=== PATIENT | female | born 1950 | race Caucasian/White ===

== ENCOUNTER 2021-05-22 11:42 | Outpatient (CLI) | payer MEDICARE, BC, SELFPAY ==
--- NOTE | 2021-05-22 11:54 | CT_ITS ---
WS: [id number] CT ABDOMEN CONTRAST TECHNIQUE: Contrast enhanced CT of the abdomen with coronal and sagittal reformatted images. CLINICAL INFORMATION: EPIGASTRIC PAIN/ABNORMAL WEIGHT LOSS/ANOREXIA COMPARISON: CT 2011 DLP: 220.[address] scans at [place] use at least one of these dose optimization techniques: automated e xposure control; mA and/or kV adjustment per patient size (includes targeted exams where dose is matc hed to clinical indication); or iterative reconstruction. FINDINGS: Diffuse fatty infiltration liver. Normal portal vein and splenic vein. Tiny gallstones in the gallbla dder. Cystic structure in the gallbladder fossa may represent choledochal cyst unchanged since 2010. This measures approximately 1.8 x 1.3 CM. This could be further evaluated with ultrasound or MRCP. No rmal caliber common bile duct and pancreatic head. Lung bases are well aerated. Adrenal glands are normal. Normal renal parenchymal enhancement. No hydr onephrosis. Normal spleen. Normal GE junction. No hydronephrosis in either kidney. Moderate aortic calcification. Normal caliber abdominal aorta. Normal visualized lumbar spine. CT/CT abdomen w con* [id number] IMPRESSION: 1. Cholelithiasis. No significant gallbladder wall thickening or pericholecyst ic fluid. 2. Possible biliary cyst in the gallbladder fossa unchanged since 2010. This c an be further evaluated with ultrasound or MRCP. Normal caliber common bile ivett t at the pancreatic head. 3. Diffuse fatty infiltration of the liver. 4. Moderate aortic calcification. Normal caliber abdominal aorta. 5. No other significant findings.
[2021-05-22 13:01] LABS: Blood Urea Nitrogen 21 mg/dL (8-23)
[2021-05-22] MEDS: iodixanol 320 mg/mL 100mL Btl IV (13:46)
[2021-05-22] MEDS: iohexol 300 mg/mL 50 mL Btl IV (13:46)
== END 2021-05-22 11:43 | disposition home or self-care (01) ==
LOC: RADWPI 11:45
PROVIDERS: PCP Nurse Practitioner Family; Visit Provider Nurse Practitioner Family
DX: R10.13 Epigastric pain (principal); R63.4 Abnormal weight loss; R63.0 Anorexia; K80.20 Calculus of gallbladder without cholecystitis without obstruction; K76.0 Fatty (change of) liver, not elsewhere classified; I70.0 Atherosclerosis of aorta
CPT/HCPCS: 36415; 74160; 82565; 84520; Q9967

== ENCOUNTER 2021-07-11 06:29 | Outpatient (CLI) | payer MEDICARE, BC, SELFPAY ==
--- NOTE | 2021-07-11 06:39 | US_ITS ---
WS: [id number] RIGHT UPPER QUADRANT ULTRASOUND HISTORY: CALCULUS OF GALLBLADDER WITHOUT CHOLECYSTITIS WITHOUT OBS COMPARISON: CT 05/22/2021 Liver: 12.4 cm in length. Normal size liver. No bile duct dilatation or mass. Portal Vein: Normal hepatopetal flow with monophasic waveform. Gallbladder: Normally distended gallbladder. Gallbladder appears lobulated and there is a prominent n malu connecting to larger gallbladder components. Neck and additional gallbladder lobulation correspon ds to the abnormality seen on the recent CT. This lobulated fluid collection in the gallbladder fossa is probably combination of an elongated lobulated gallbladder. There are stones in the gallbladder w ith no acute cholecystitis. There is also a stone or polyp measuring 4 mm at the neck of the gallblad ryan. CBD: 0.3 cm Pancreas: Normal size and echogenicity. Right kidney: 8.9 cm in length. Normal size and echogenicity. No hydronephrosis or mass. Aorta and IVC: Unremarkable abdominal aorta and IVC. No ascites. US/US gall bladder [id number] IMPRESSION: 1. Cholelithiasis. 2. Elongated gallbladder with a prominent neck. Gallbladder elongation corresp onds to the recent CT findings. There is also a polyp or nonshadowing stone at the gallbladder neck. 3. No bile duct dilatation.
== END 2021-07-11 06:30 | disposition home or self-care (01) ==
LOC: RAD 06:30
PROVIDERS: PCP Nurse Practitioner Family; Visit Provider Nurse Practitioner Family
DX: K80.20 Calculus of gallbladder without cholecystitis without obstruction (principal)
CPT/HCPCS: 76705

== ENCOUNTER 2021-07-25 09:42 | Outpatient (CLI) | payer MEDICARE, BC, SELFPAY ==
--- NOTE | 2021-07-25 10:15 | MR_ITS ---
WS: [id number] MRCP (MAGNETIC RESONANCE CHOLANGIOPANCREATOGRAPHY) HISTORY: K76.89 - Other specified diseases of liver COMPARISON: Gallbladder ultrasound 07/11/2021 TECHNIQUE: Multiple sequences are performed to evaluate the intra and extrahepatic ducts. Additional imaging obtained on 07/26/2021. Gallbladder is mildly contracted. No stones or sludge identified by CT. Again noted is a 15 x 11 mm c ystic area just superior to the gallbladder at the gallbladder fossa. This does not definitely connec t to the gallbladder. Also no identifiable connection to the common bile duct although I do not belie ve that should be excluded. This is inseparable from the common bile duct on the CT. On the repeat im aging there is no identifiable connection to the common bile duct. There may be a small tract of the main gallbladder. No connection to the duodenum. A normal size common bile duct. MR/MR MRCP [id number] IMPRESSION: 1. Normal common bile duct. No obstruction. 2. Again noted is a cystic nodule adjacent to the gallbladder and just lateral to the common bile duct as seen on the recent CT. No definite connection to th e common bile duct to suggest a choledochocele. There may be a small tract exte nding to the gallbladder. This may be a multiseptate gallbladder. I do suspect this is part of the gallbladder as on a prior ultrasound there was a gallstone within this separate lumen. 3. Cholelithiasis better seen on a prior CT.
== END 2021-07-25 09:43 | disposition home or self-care (01) ==
LOC: RAD 09:44
PROVIDERS: PCP Nurse Practitioner Family; Visit Provider Surgery
DX: K76.89 Other specified diseases of liver (principal); K80.20 Calculus of gallbladder without cholecystitis without obstruction
CPT/HCPCS: 74181

== ENCOUNTER 2022-01-04 12:18 | Outpatient (CLI) | payer MEDICARE, BC, SELFPAY ==
--- NOTE | 2022-01-04 12:30 | XR_ITS ---
WS: [id number] Exam: XR shoulder LT min 2V* [id number] Date/Time of Exam: 01/04/2022 12:46 PM Reason For Exam: PAIN IN LEFT SHOULDER No fracture or dislocation. The joint compartments are well-maintained. Soft tissue calcification wei ng the acromion that may represent calcific bursitis. XR/XR shoulder LT min 2V* [id number] IMPRESSION: 1. No fracture or dislocation. 2. Soft tissue calcification noted that might reflect calcific bursitis.
== END 2022-01-04 12:19 | disposition home or self-care (01) ==
LOC: RAD 12:21
PROVIDERS: PCP Nurse Practitioner Family; Visit Provider Nurse Practitioner Family
DX: M25.512 Pain in left shoulder (principal); W19.XXXA Unspecified fall, initial encounter
CPT/HCPCS: 73030

== ENCOUNTER 2022-08-15 14:46 | Emergency (ER) | payer MEDICARE, SELFPAY ==
[2022-08-15 15:07] VITALS: BP 116/69; PULSE 62; RESP 16; TEMP 36.8; O2SAT 97
--- NOTE | 2022-08-15 17:15 | XRR_ITS ---
PROCEDURE INFORMATION: Exam: XR Right Ribs with PA Chest Exam date and time: 08/15/2022 5:31 PM Age: 72 years old Clinical indication: Injury or trauma; Rib area; Blunt trauma (contusions or hematomas); Prior surgery; Surgery date: 6+ months; Surgery type: Open heart; Patient HX: Fall 08/12/22 with RT rib pain; ; Additional info: Fall with rib pain TECHNIQUE: Imaging protocol: Radiologic exam of the right ribs with PA chest. Views: 3 views COMPARISON: MR MRCP [id number] 07/25/2021 10:10 AM FINDINGS: Lungs: Unremarkable. No consolidation. Pleural spaces: Unremarkable. No pleural effusion. No pneumothorax. Heart/Mediastinum: Unremarkable. No cardiomegaly. Bones/joints: Multiple displaced of acute rib fractures right 5th 6th and 7th rib these are seen on the oblique view only. There is metallic sternotomy wires are present XR/XR ribs RT mn 3V w CXR1V [id number] IMPRESSION: 1. Displaced fractures right 5th 6th and 7th rib 2. Metallic sternotomy wires are present 3. Otherwise No acute findings.
--- NOTE | 2022-08-15 19:17 | ED_ITS ---
HPI - Fall General: Chief Complaint: Fall Stated Complaint: fall, rib pain Time Seen by Provider: 08/15/22 19:02 History of Present Illness: 72-year-old lady on aspirin presenting to the emergency department due to fall with continued pain. She reports tripping outside and landing forward on concrete on her right side striking her head with positive loss of consciousness 2 days ago. She is unsure of how long she was on the ground however did not seek medical treatment when she got up. Since that time has had continued headache, increased somnolence, right-sided rib pain and back pain. Intensity symptoms is moderate. Severe with exertion and palpation. No other specific changes in health, exacerbating, or alleviating factors identified. Onset (ago): day(s) Fall from: standing Fall witnessed: no Loss of consciousness: Yes Prolonged down time: unclear Symptoms prior to fall: none Context: tripped/slipped Location of injury: head, face, chest and abdomen Severity: moderate Quality: aching and throbbing Review of Systems General: Reports: 10 or more systems reviewed and unremarkable except in HPI and below PFSH ED PFSH: Medical History Epigastric pain Social History Smoking and tobacco status: never smoked Physical Exam Const: COMMON NORMALS: alert GENERAL APPEARANCE: cooperative and well developed HENMT: COMMON NORMALS: normocephalic HEAD & SCALP: normocephalic OTHER: Right lateral periorbital and right mandibular ecchymosis and tenderness palpation. No lambert signs or raccoon eyes. No hemotympanum. No otorrhea or rhinorrhea. Jaw alignment normal. Dentition baseline. No obvious bony step- offs. No septal hematoma. No evidence of ocular entrapment. Eye: COMMON NORMALS: conjunctivae normal CONJUNCTIVA: Yes conjunctivae normal SCLERA: sclerae normal Neck/C-Spine: COMMON NORMALS: supple GENERAL: Yes trachea midline Resp: COMMON NORMALS: clear to auscultation bilaterally EFFORT & INSPECTION: Yes able to speak in complete sentences AUSCULTATION: clear to au scultation bilaterally OTHER: Right lateral and posterior tenderness palpation Cardio: COMMON NORMALS: regular rate and regular rhythm RATE: regular rate RHYTHM: regular rhythm GI: COMMON NORMALS: Soft to palpation PALPATION: Yes Soft to palpation and No Tenderness to palpation present (GI) PERCUSSION: normal to percussion Extremity: NARRATIVE EXTREMITY EXAM: Left mid tibia-fibula tenderness to palpation without obvious deformity. GENERAL: Yes normal exam except as noted and No edema Neuro: COMMON NORMALS: moves all extremities SENSORIUM/ORIENTATION: Yes alert and No Orientation impaired Psych: COMMON NORMALS: mental status grossly normal and Normal thought process present THOUGHT PROCESS: Normal thought process present Course Vital Signs: Vital signs: Vital Signs Temperature 98.2 F 08/15/22 15:07 Pulse Rate 62 08/15/22 15:07 Respiratory Rate 16 08/15/22 22:32 Blood Pressure 116/69 08/15/22 15:07 Pulse Oximetry 94 08/15/22 22:32 Oxygen Delivery Me thod Room Air 08/15/22 22:32 MDM - Fall Medical Decision Making 72-year-old lady presenting due to continued pain after a fall for which she was not previously evaluated. Exam as above. Continue exam performed. Labs with no leukocytosis, normocytic anemia, normal platelet count. Metabolic panel without derangement to explain symptoms. COVID is negative. CT head and cervical spine as well as face without acute bony injury or internal injury. Soft tissue findings consistent with exam. CT chest abdomen pelvis with initially read as negative for any injury. Incidental findings discussed with patient. Given ED wait times the patient had received a x-ray prior to my evaluation which was positive for fractures. I discussed the case with the radiologist and he identifies possible fractures though these are not consistent with the identified x-ray fractures and are not visible on the coronal views. Patient does have tenderness in this region. X- rays otherwise negative. Patient treated with analgesia and feels improved. Complex situation as imaging is somewhat indeterminant and there is a significant difference in management between 3 continuous or fractures and less. I discussed this with the patient. I offered to attempt transfer for inpatient trauma management which she declined, given uncertainty this is probably reasonable. Plan to discharge patient with incentive spirometer, strict return cautions given. The results of ED evaluation were discussed with the patient including prescriptions and/or symptomatic cares (if applicable) including appropriate and responsible use, followup plan, and return precautions. The patient verbalized understanding and felt safe for discharge. Medical Records I reviewed the patient's medical records. Lab Data I reviewed the patient's lab results. 08/15/22 20:00 08/15/22 20:00 Radiology Impressions Ribs X-Ray 08/15/22 17:15 IMPRESSION: 1. Displaced fractures right 5th 6th and 7th rib 2. Metallic sternotomy wires are present 3. Otherwise No acute findings. Cervical Spine CT 08/15/22 19:31 IMPRESSION: 1. No fracture or acute finding. 2. Multilevel degenerative changes. Chest/Abdomen/Pelvis CT 08/15/22 19:31 IMPRESSION: 1. Negative for traumatic injury to the chest. 2. Ascending thoracic aorta dilated 3.4 cm. 3. Sternotomy wires. 4. Coronary artery atherosclerotic calcifications. 5. Emphysematous changes suspected. IMPRESSION: 1. Negative for traumatic injury to the abdomen or pelvis. 2. Hepatic steatosis. 3. Constipation. ADDENDUM: 08/15/222148 Findings reviewed on the phone with Dr. Tabares . Right 3rd anterolateral rib series 15, image 43 sagittal images, right 4th anterolateral rib series 15, image 45 sagittal images and possibly right 5th anterolateral rib series 15, image 47 sagittal images demonstrate fractures which on axial images are not well visualized and appear somewhat sclerotic, please correlate clinically for acute versus chronic rib fractures. Face CT 08/15/22 19:31 IMPRESSION: 1. No fracture identified. 2. Soft tissue contusion and small hematoma in the right cheek. Head CT 08/15/22 19:31 IMPRESSION: 1. No acute intracranial abnormality. Humerus X-Ray 08/15/22 19:31 IMPRESSION: No acute findings. Tibia/Fibula X-Ray 08/15/22 19:31 IMPRESSION: No acute findings. Laboratory Results WBC 7.7 10^3/uL (4.0-10.0) 08/15/22 20:00 RBC 3.94 10^6/uL (4.1-5.3) L 08/15/22 20:00 Hgb 10.3 g/dL (11.5-15.3) L 08/15/22 20:00 Hct 33.3 % (37.0-47.0) L 08/15/22 20:00 MCV 84.5 fl (81-99) 08/15/22 20:00 MCH 26.1 pg (28.0-34.0) L 08/15/22 20:00 MCHC 30.9 g/dL (30.0-36.0) 08/15/22 20:00 RDW 15.9 % (12.1-15.1) H 08/15/22 20:00 Plt Count 305 10^3/cmm (130-400) 08/15/22 20:00 MPV 9.7 fL (7.4-10.4) 08/15/22 20:00 Neut % (Auto) 52.3 % 08/15/22 20:00 Lymph % (Auto) 30.1 % 08/15/22 20:00 [place] % (Auto) 10.5 % 08/15/22 20:00 Eos % (Auto) 6.0 % 08/15/22 20:00 Baso % (Auto) 0.7 % 08/15/22 20:00 Neut # (Auto) 4.02 10^3/uL (1.8-7.7) 08/15/22 20:00 Lymph # (Auto) 2.3 10^3/uL (0.8-4.8) 08/15/22 20:00 [place] # (Auto) 0.8 10^3/uL (0.2-0.9) 08/15/22 20:00 Eos # (Auto) 0.5 10^3/uL (0.0-0.8) 08/15/22 20:00 Baso # (Auto) 0.1 10^3/uL (0.0-0.1) 08/15/22 20:00 Nucleated RBC % (auto) 0 % 08/15/22 20:00 Nucleated RBCs # 0.0 /100WBC 08/15/22 20:00 Sodium 141 mmol/L (136-145) 08/15/22 20:00 Potassium 4.7 mmol/L (3.5-5.1) 08/15/22 20:00 Chloride 103 mmol/L (98-107) 08/15/22 20:00 Carbon Dioxide 28 mmol/L (22-29) 08/15/22 20:00 Anion Gap 14.7 (5-19) 08/15/22 20:00 BUN 18 mg/dL (8-23) 08/15/22 20:00 Creatinine 0.8 mg/dL (0.5-0.9) 08/15/22 20:00 GFR Calculation Not Reportable 08/15/22 20:00 Glucose 124 mg/dL (65-115) H 08/15/22 20:00 Calculated Osmolality 295 mOsm/kg (285-295) 08/15/22 20:00 Calcium 9.4 mg/dL (8.5-10.5) 08/15/22 20:00 Total Bilirubin 0.2 mg/dL (0.15-1.2) 08/15/22 20:00 AST 21 U/L (0-32) 08/15/22 20:00 ALT 13 U/L (0-33) 08/15/22 20:00 Alkaline Phosphatase 100 U/L (35-105) 08/15/22 20:00 Total Protein 7.4 g/dL (6.6-8.7) 08/15/22 20:00 Albumin 4.5 g/dL (3.5-5.2) 08/15/22 20:00 Globulin 2.9 g/dL (1.3-4.6) 08/15/22 20:00 SARS-CoV-2 Ag (Rapid) negative (Negative) 08/15/22 20:37 Discharge Plan Discharge Patient Disposition: Home Clinical Impression: Fall, Closed head injury, Contusion of face, Anemia, Multiple rib fractures Condition: Stable Prescriptions: New ondansetron 4 mg tablet,disintegrating 4 mg PO Q8H PRN (Reason: nausea and vomiting) Qty: 15 0RF oxycodone 5 mg tablet 5 mg PO Q4H PRN (Reason: pain) Qty: 20 0RF No Action amlodipine 5 mg tablet 5 mg PO BID aspirin 81 mg capsule 81 mg PO DAILY rosuvastatin [Crestor] 40 mg tablet 40 mg PO DAILY insulin lispro 100 unit/mL insulin pen 5 unit SUBCUT TID Rx Instructions: uses low dose scale subQ at meals and HS isosorbide mononitrate 30 mg tablet extended release 24 hr 30 mg PO DAILY Lantus U-100 Insulin 100 unit/mL solution 7 unit SUBCUT BID melatonin 5 mg capsule PO metformin 1,000 mg tablet 1,000 mg PO BID metoprolol tartrate 50 mg tablet 50 mg PO BID nitroglycerin 0.4 mg tablet, sublingual 0.4 mg sublingual Q5M PRN Rx Instructions: do not exceed 3 doses per episode pantoprazole [Protonix] 20 mg tablet,delayed release (/EC) 20 mg PO DAILY sertraline [Zoloft] 25 mg tablet 25 mg PO DAILY tizanidine 4 mg capsule 4 mg PO Q8H PRN triamcinolone acetonide 0.1 % cream 1 applic topical DAILY Discharge Orders: Discharge ED (Routine); Ordered 08/15/22 Ordered By: Dwaine Tabares Referrals: Jane Cardoso FNP [Primary Care Provider] - Discharge Diet: Usual diet Discharge Activity: Increase activity as tolerated Patient Instructions: Rib Fracture (ED), Head Injury (ED), Contusion in Adults (ED), Opioid Safety Activity Restrictions/Additional Instructions: Thank you for visiting the emergency department. You were seen and evaluated for fall with head injury and rib pain. The most likely cause of most your pain is related to soft tissue injury. As discussed you possibly have rib fractures. The treatment for this is supportive with the risk being complications specifically risk of pneumonia. I will discharge you with oxycodone, use this cautiously. You may use [id number] medications such as acetaminophen and ibuprofen for pain however please do not exceed the daily recommended dosage as listed on the pac kaging and please keep in mind that many namebrand medications contain the same active ingredients. Please avoid these medications if previously instructed to do so by another physician due to other underlying medical condition. Use the incentive spirometer as discussed. Please follow-up with a primary care provider. Return to the emergency department for worsening pain, shortness of breath, co ugh, fevers, or anything else that you are concerned about and feel needs emergency department evaluation. Coding Level of Care Code ED [employer] for Josefina Arevalo
--- NOTE | 2022-08-15 19:31 | CTR_ITS ---
PROCEDURE INFORMATION: Exam: CT Cervical Spine Without Contrast Exam date and time: 08/15/2022 8:14 PM Age: 72 years old Clinical indication: Injury or trauma; Fall; Blunt trauma; Additional info: Fall, right neck pain TECHNIQUE: Imaging protocol: Computed tomography of the cervical spine without contrast. Radiation optimization: All CT scans at this facility use at least one of these dose optimization techniques: automated exposure control; mA and/or kV adjustment per patient size (includes targeted exams where dose is matched to clinical indication); or iterative reconstruction. REPORTING DATA: Count of CT and Cardiac NM exams in prior 12 months: This patient has received 3 known CTs and 0 known cardiac nuclear medicine studies in the 12 months prior to the current study. COMPARISON: CT facial bones wo con* [id number] 08/15/2022 8:12 PM RADIATION DOSE METRICS: Total DLP (mGy-cm): 127.27 FINDINGS: Bones/joints: The vertebral body stature is maintained. No fracture. Trace anterior degenerative subluxation of C3 on C4. Trace retrograde degenerative subluxations of C4 on C5 and C5 on C6. Severe disc space narrowing with degenerative endplate changes and spurring at C4-C5 and C5-C6. The facets are intact with mild degenerative changes. Circumferential disc bulge at C3-C4 with moderate central canal stenosis. Bilateral bony foraminal stenosis at C4-C5 and C5-C6. Small disc bulges with mild central canal stenosis at C4-C5 and C5-C6. Posterior disc bulge with moderate central canal stenosis at C6-C7. Lungs: Lung apices are normal. Lymph nodes: Prominent cervical lymph nodes are most likely reactive. Vasculature: Carotid bulb calcifications. Soft tissues: Unremarkable. CT/CT cervical spin wo con* [id number] IMPRESSION: 1. No fracture or acute finding. 2. Multilevel degenerative changes.
--- NOTE | 2022-08-15 19:31 | XRR_ITS ---
PROCEDURE INFORMATION: Exam: XR Left Tibia and Fibula Exam date and time: 08/15/2022 7:44 PM Age: 72 years old Clinical indication: Injury or trauma; Fall; Blunt trauma; Lower leg; Patient HX: PT fell 08/12/22. C/O pain left tib/fib; Additional info: Fall, mid pain to lateral compression TECHNIQUE: Imaging protocol: Radiologic exam of the left tibia and fibula. Views: 2 views. COMPARISON: No relevant prior studies available. FINDINGS: Bones/joints: Normal. Soft tissues: Normal. XR/XR tibia fibula LT 2V [id number] IMPRESSION: No acute findings.
--- NOTE | 2022-08-15 19:31 | XRR_ITS ---
PROCEDURE INFORMATION: Exam: XR Right Humerus Exam date and time: 08/15/2022 7:41 PM Age: 72 years old Clinical indication: Injury or trauma; Fall; Blunt trauma (contusions or hematomas); Arm, upper; Right; Patient HX: PT fell 08/12/22. C/O paiin RT ribs and RT humerus; Additional info: Fall, pain proximal TECHNIQUE: Imaging protocol: Radiologic exam of the right humerus. Views: 2 or more views. COMPARISON: CR (CHEST, ) 08/15/2022 5:31 PM FINDINGS: Bones/joints: Normal. Soft tissues: Normal. XR/[place] [id number] IMPRESSION: No acute findings.
--- NOTE | 2022-08-15 19:31 | CTR_ITS ---
PROCEDURE INFORMATION: Exam: CT Head Without Contrast Exam date and time: 08/15/2022 8:09 PM Age: 72 years old Clinical indication: Injury or trauma; Fall; Blunt trauma (contusions or hematomas); Additional info: Fall, h/a, somnolence TECHNIQUE: Imaging protocol: Computed tomography of the head without contrast. Radiation optimization: All CT scans at this facility use at least one of these dose optimization techniques: automated exposure control; mA and/or kV adjustment per patient size (includes targeted exams where dose is matched to clinical indication); or iterative reconstruction. REPORTING DATA: Count of CT and Cardiac NM exams in prior 12 months: This patient has received 2 known CTs and 0 known cardiac nuclear medicine studies in the 12 months prior to the current study. COMPARISON: CT head wo con* [id number] 09/08/2018 6:24 PM RADIATION DOSE METRICS: Total DLP (mGy-cm): 1011.98 FINDINGS: Brain: Moderate diffuse cortical volume loss. Mild hypodensities in supratentorial periventricular and subcortical white matter, consistent with microangiopathy. No intracranial hemorrhage. Cerebral ventricles: No ventriculomegaly. Paranasal sinuses: Visualized sinuses are unremarkable. No fluid levels. Mastoid air cells: Visualized mastoid air cells are well aerated. Orbital cavities: Prior cataract surgery. Bones/joints: Unremarkable. No acute fracture. Soft tissues: Unremarkable. Vasculature: No hyperdense artery. CT/CT head wo con* [id number] IMPRESSION: 1. No acute intracranial abnormality.
--- NOTE | 2022-08-15 19:31 | CTR_ITS ---
PROCEDURE INFORMATION: Exam: CT Maxillofacial Without Contrast Exam date and time: 08/15/2022 8:12 PM Age: 72 years old Clinical indication: Injury or trauma; Fall; Blunt trauma (contusions or hematomas); Forehead and orbit/periorbital and jaw; Right; Additional info: Fall, right lateral orbital tenderness, right mandibular TECHNIQUE: Imaging protocol: Computed tomography of the face without contrast. Radiation optimization: All CT scans at this facility use at least one of these dose optimization techniques: automated exposure control; mA and/or kV adjustment per patient size (includes targeted exams where dose is matched to clinical indication); or iterative reconstruction. REPORTING DATA: Count of CT and Cardiac NM exams in prior 12 months: This patient has received 2 known CTs and 0 known cardiac nuclear medicine studies in the 12 months prior to the current study. COMPARISON: CT head wo con* [id number] 08/15/2022 8:09 PM RADIATION DOSE METRICS: Total DLP (mGy-cm): 537.35 FINDINGS: Orbital cavities: Prior cataract surgery. Bones/joints: Degenerative changes of the cervical spine. No fracture. Paranasal sinuses: Normal. No air-fluid levels. Soft tissues: Subcutaneous soft tissue contusion and small hematoma in the right cheek. Dental: Unerupted upper left 3rd molar. Multiple missing upper and lower teeth. CT/CT facial bones wo con* [id number] IMPRESSION: 1. No fracture identified. 2. Soft tissue contusion and small hematoma in the right cheek.
--- NOTE | 2022-08-15 19:31 | CTR_ITS ---
PROCEDURE INFORMATION: Exam: CT Chest With Contrast; Diagnostic Exam date and time: 08/15/2022 8:18 PM Age: 72 years old Clinical indication: Injury or trauma; Fall; Abdominal wall; Blunt trauma (contusions or hematomas); Prior surgery; Surgery type: Open heart. Gb. Appy. Hysterectomy. Patient HX: PT tripped and fell onto concrete. C/O RT rib/chest wall and RT sided abd pain. ; Additional info: Fall, right side and rib pains TECHNIQUE: Imaging protocol: Diagnostic computed tomography of the chest with contrast. Radiation optimization: All CT scans at this facility use at least one of these dose optimization techniques: automated exposure control; mA and/or kV adjustment per patient size (includes targeted exams where dose is matched to clinical indication); or iterative reconstruction. Contrast material: OMNI 350; Contrast volume: 75 ml; Contrast route: INTRAVENOUS (IV); REPORTING DATA: Count of CT and Cardiac NM exams in prior 12 months: This patient has received 3 known CTs and 0 known cardiac nuclear medicine studies in the 12 months prior to the current study. COMPARISON: CR (CHEST, ) 08/15/2022 5:31 PM RADIATION DOSE METRICS: Total DLP (mGy-cm): 537.35 FINDINGS: Lungs: Emphysematous changes suspected. Pleural spaces: Unremarkable. No pneumothorax. No pleural effusion. Heart: Unremarkable. No cardiomegaly. No pericardial effusion. Coronary arteries: Coronary artery atherosclerotic calcifications. Lymph nodes: Unremarkable. No enlarged lymph nodes. Vasculature: Ascending thoracic aorta dilated to to 3.4 cm. Bones/joints: Sternotomy wires. Soft tissues: Unremarkable. COMMENTS: In the absence of a history or active diagnosis of lung cancer, it is recommended that this patient with emphysema be evaluated for enrollment in a low dose CT lung cancer screening program. PROCEDURE INFORMATION: Exam: CT Abdomen And Pelvis With Contrast Exam date and time: 08/15/2022 8:18 PM Age: 72 years old Clinical indication: Injury or trauma; Fall; Abdominal wall; Blunt trauma (contusions or hematomas); Prior surgery; Surgery type: Open heart. Gb. Appy. Hysterectomy. Patient HX: PT tripped and fell onto concrete. C/O RT rib/chest wall and RT sided abd pain. ; Additional info: Fall, right side and rib pains TECHNIQUE: Imaging protocol: Computed tomography of the abdomen and pelvis with contrast. Radiation optimization: All CT scans at this facility use at least one of these dose optimization techniques: automated exposure control; mA and/or kV adjustment per patient size (includes targeted exams where dose is matched to clinical indication); or iterative reconstruction. Contrast material: OMNI 350; Contrast volume: 75 ml; Contrast route: INTRAVENOUS (IV); REPORTING DATA: Count of CT and Cardiac NM exams in prior 12 months: This patient has received 3 known CTs and 0 known cardiac nuclear medicine studies in the 12 months prior to the current study. COMPARISON: MR MRCP [id number] 07/25/2021 10:10 AM RADIATION DOSE METRICS: Total DLP (mGy-cm): 537.35 FINDINGS: Liver: Hepatic steatosis. Gallbladder and bile ducts: Normal. No calcified stones. No ductal dilation. Pancreas: Normal. No ductal dilation. Spleen: Normal. No splenomegaly. Adrenal glands: Normal. No mass. Kidneys and ureters: Normal. No hydronephrosis. Stomach and bowel: Constipation. Appendix: No evidence of appendicitis. Intraperitoneal space: Unremarkable. No free air. No significant fluid collection. Vasculature: Unremarkable. No abdominal aortic aneurysm. Lymph nodes: Unremarkable. No enlarged lymph nodes. Urinary bladder: Unremarkable as visualized. Reproductive: Unremarkable as visualized. Bones/joints: Unremarkable. No acute fracture. Soft tissues: Unremarkable. CT/CT chest abdpel w/*[id number] IMPRESSION: 1. Negative for traumatic injury to the chest. 2. Ascending thoracic aorta dilated 3.4 cm. 3. Sternotomy wires. 4. Coronary artery atherosclerotic calcifications. 5. Emphysematous changes suspected. IMPRESSION: 1. Negative for traumatic injury to the abdomen or pelvis. 2. Hepatic steatosis. 3. Constipation.
[2022-08-15] MEDS: morphine 4 mg/mL SDV 1 mL IVP (20:03)
[2022-08-15] MEDS: iohexol 350 mg/mL 500 mL Btl (per mL) IV (20:23)
[2022-08-15 20:26] LABS: Basophils # 0.1 10^3/uL (0.0-0.1); Basophils % 0.7 %; Eosinophils # 0.5 10^3/uL (0.0-0.8); Hematocrit 33.3 % (37.0-47.0); Hemoglobin 10.3 g/dL (11.5-15.3); Lymphocytes # 2.3 10^3/uL (0.8-4.8); Lymphocytes % 30.1 %; Mean Corpuscular HGB Conc 30.9 g/dL (30.0-36.0); Mean Corpuscular Hemoglobin 26.1 pg (28.0-34.0); Mean Corpuscular Volume 84.5 fl (81-99); Mean Platelet Volume 9.7 fL (7.4-10.4); Monocytes # 0.8 10^3/uL (0.2-0.9); Monocytes % 10.5 %; Neutrophils # 4.02 10^3/uL (1.8-7.7); Neutrophils % 52.3 %; Nucleated Red Blood Cells % 0 %; Platelet Count 305 10^3/cmm (130-400); Red Blood Count 3.94 10^6/uL (4.1-5.3); Red Cell Distribution Width 15.9 % (12.1-15.1); White Blood Count 7.7 10^3/uL (4.0-10.0)
[2022-08-15 20:33] LABS: Alanine Aminotransferase 13 U/L (0-33); Albumin Level 4.5 g/dL (3.5-5.2); Alkaline Phosphatase 100 U/L (35-105); Anion Gap 14.7 (5-19); Aspartate Amino Transferase 21 U/L (0-32); Blood Urea Nitrogen 18 mg/dL (8-23); Calcium 9.4 mg/dL (8.5-10.5); Carbon Dioxide 28 mmol/L (22-29); Chloride 103 mmol/L (98-107); Globulin 2.9 g/dL (1.3-4.6); Glucose 124 mg/dL (65-115); Osmolality Calculated 295 mOsm/kg (285-295); Potassium 4.7 mmol/L (3.5-5.1); Sodium 141 mmol/L (136-145); Total Bilirubin 0.2 mg/dL (0.15-1.2); Total Protein 7.4 g/dL (6.6-8.7)
[2022-08-15 21:15] LABS: SARS Covid-2 Antigen negative (Negative)
[2022-08-15 22:32] VITALS: RESP 16; O2SAT 94
== END 2022-08-15 22:58 | disposition home or self-care (01) ==
PROVIDERS: Emergency Provider Emergency Medicine; PCP Nurse Practitioner Family
DX: S22.41XA Multiple fractures of ribs, right side, initial encounter for closed fracture (principal); S06.9X9A Unspecified intracranial injury with loss of consciousness of unspecified duration, initial encounter; S00.83XA Contusion of other part of head, initial encounter; D64.9 Anemia, unspecified; W01.0XXA Fall on same level from slipping, tripping and stumbling without subsequent striking against object, initial encounter
CPT/HCPCS: 70450; 70486; 71101; 71260; 72125; 73060; 73590; 74177; 80053; 85025; 87426; 96374; 99285; J2270; Q9967

== ENCOUNTER 2022-08-30 09:46 | Outpatient (CLI) | payer MEDICARE, SELFPAY ==
--- NOTE | 2022-08-30 10:01 | XR_ITS ---
WS: [id number] Exam: XR ankle LT min 3V* [id number] Date/Time of Exam: 08/30/2022 10:15 AM Reason For Exam: PAIN IN LEFT ANKLE JOINTS OF LEFT FOOT/FALL Findings: Multiple views of the ankle reveal no fracture or displacements of bone. No soft tissue swelling is present. There are no periosteal reactions noted. The talus and calcaneus are in adequate position. The joint space is smooth and equidistant. XR/XR ankle LT min 3V* [id number] IMPRESSION: Negative left ankle.
== END 2022-08-30 09:47 | disposition home or self-care (01) ==
LOC: RAD 09:50
PROVIDERS: PCP Nurse Practitioner Family; Visit Provider Nurse Practitioner Family
DX: M25.572 Pain in left ankle and joints of left foot (principal); Z91.81 History of falling
CPT/HCPCS: 73610

== ENCOUNTER 2023-01-22 09:07 | Outpatient (CLI) | payer MEDICARE, SELFPAY ==
--- NOTE | 2023-01-22 09:14 | MM_ITS ---
WS: [id number] BILATERAL SCREENING DIGITAL TOMOSYNTHESIS MAMMOGRAM WITH CAD HISTORY: SCREENING COMPARISON: None available. Bilateral CC and MLO views with tomosynthesis and synthetic mammography submitted. Computer aided det ection analyzed. Breast composition: There are scattered areas of fibroglandular density. No suspicious masses, microc alcifications or architectural distortion. Benign arterial and round calcifications. IMPRESSION: MM/[place] [id number] BI-RADS: 2-Benign FOLLOW UP: 1 Year Follow-up
== END 2023-01-22 09:08 | disposition home or self-care (01) ==
PROVIDERS: PCP Nurse Practitioner Family; Visit Provider Nurse Practitioner Family
DX: Z12.31 Encounter for screening mammogram for malignant neoplasm of breast (principal)
CPT/HCPCS: 77063; 77067

== ENCOUNTER 2023-07-16 12:07 | Outpatient (CLI) | payer MEDICARE, SELFPAY ==
--- NOTE | 2023-07-16 12:12 | XRR_ITS ---
PROCEDURE INFORMATION: Exam: XR Chest Exam date and time: 07/16/2023 12:25 PM Age: 72 years old Clinical indication: Pain; Other: Other; Prior surgery; Surgery date: 6+ months; Surgery type: Open heart; Patient HX: Checking for fluid in the lungs; Additional info: Other chest pain TECHNIQUE: Imaging protocol: Radiologic exam of the chest. Views: 2 views. COMPARISON: CT chest abdpel w/*[id number] 08/15/2022 8:18 PM FINDINGS: Tubes, catheters and devices: Electronic devices projecting over the anterior upper abdomen are likely external to the patient. Lungs: Unremarkable. No consolidation. Pleural spaces: Unremarkable. No pleural effusion. No pneumothorax. Heart/Mediastinum: No cardiomegaly. Mediastinal surgical clips. Vasculature: Aortic atherosclerotic calcification. Bones/joints: Prior median sternotomy. XR/XR chest 2V* [id number] IMPRESSION: No acute findings.
== END 2023-07-16 12:08 | disposition home or self-care (01) ==
LOC: RAD 12:08
PROVIDERS: PCP Nurse Practitioner Family; Visit Provider Nurse Practitioner Family
DX: R07.89 Other chest pain (principal); Z98.890 Other specified postprocedural states; Z86.79 Personal history of other diseases of the circulatory system
CPT/HCPCS: 71046

== ENCOUNTER 2024-07-19 14:01 | Emergency (ER) | payer MEDICARE, SELFPAY ==
[2024-07-19 14:03] VITALS: BP 167/89; PULSE 77; TEMP 36.7; O2SAT 97; BMI 20.5
--- NOTE | 2024-07-19 14:25 | XRR_ITS ---
PROCEDURE INFORMATION: Exam: XR Left Elbow Exam date and time: 07/19/2024 2:53 PM Age: 74 years old Clinical indication: Pain; Elbow; Left; Additional info: Injury? Pain; Get mid humerus TECHNIQUE: Imaging protocol: Radiologic exam of the left elbow. Views: 3 or more views. COMPARISON: CR XR shoulder LT min 2V* [id number] 01/04/2022 12:36 PM FINDINGS: Bones/joints: No evidence of fracture or subluxation. No evidence of joint effusion. Radiocapitellar alignment is maintained. Soft tissues: Grossly unremarkable. XR/XR elbow LT min 3V* [id number] IMPRESSION: 1. No evidence of fracture or subluxation.
--- NOTE | 2024-07-19 14:25 | XRR_ITS ---
PROCEDURE INFORMATION: Exam: XR Left Shoulder Exam date and time: 07/19/2024 2:53 PM Age: 74 years old Clinical indication: Pain; Shoulder; Left; Additional info: Injury? Pain; Get mid humerus TECHNIQUE: Imaging protocol: Radiologic exam of the left shoulder. Views: 2 or more views. COMPARISON: CR XR shoulder LT min 2V* [id number] 01/04/2022 12:36 PM FINDINGS: Bones/joints: The glenohumeral articulation is grossly intact. The acromioclavicular articulation is grossly intact. Bony demineralization compatible with osteopenia or osteoporosis. Soft tissues: No gross soft tissue abnormality. 3 mm calcification in the region of the distal infraspinatus tendon, possibly reflecting calcium hydroxyapatite deposition. XR/XR shoulder LT min 2V* [id number] IMPRESSION: 1. No evidence of fracture or subluxation. If there is concern for labral, muscle or tendon pathology, follow-up outpatient MRI may be helpful.
--- NOTE | 2024-07-19 14:29 | W.ED.EXTPRO ---
HPI - Extremity Problem General: Chief complaint: Extremity Injury, Upper Stated complaint: pain/ arm , shoulder / fell last week Time Seen by Provider: 07/19/24 14:12 Source: patient and family Mode of arrival: ambulatory Limitations: no limitations History of Present Illness: Patient is a 74-year-old female presents to ED today with complaint of left arm pain. Patient states she fell about a week ago after the wind caught a door knocked her down. She did fall onto her left side but she did not have any pain following the fall. Patient states she has been asymptomatic over the past several days until today when she began noticing pain to the left shoulder and elbow region. She is not sure if she slept on it wrong or rolled over on it wrong. She has not noticed any swelling or color/temperature changes to the arm. She is not having any numbness, tingling, loss of sensation. Pain is worse with range of motion of the elbow or shoulder. She is not having any neck pain. MD Complaint: extremity pain Onset (ago): hour(s) Pain Consistency: constant Location: left and upper extremity Radiation: none Relieving factors: immobilization Exacerbating factors: range of motion and palpation Associated symptoms: Reports no associated symptoms; Deny chest pain Related Data Home Medications ?Medication ?Instructions ?Recorded ?Confirmed amlodipine 5 mg tablet 5 mg PO BID 08/01/21 07/19/24 aspirin 81 mg capsule 81 mg PO DAILY 08/01/21 07/19/24 insulin lispro 100 unit/mL 5 unit SUBCUT TID 08/01/21 07/19/24 subcutaneous pen (Humalog KwikPen (U-100) Insulin) isosorbide mononitrate 30 mg 30 mg PO DAILY 08/01/21 07/19/24 tablet,extended release 24 hr metoprolol tartrate 50 mg tablet 50 mg PO BID 08/01/21 07/19/24 nitroglycerin 0.4 mg sublingual 0.4 mg sublingual Q5M PRN Chest 08/01/21 07/19/24 tablet Pain rosuvastatin 40 mg tablet (Crestor) 40 mg PO DAILY 08/01/21 07/19/24 diltiazem HCl 180 mg 180 mg PO DAILY 07/19/24 07/19/24 capsule,extended release 24 hr evolocumab 140 mg/mL subcutaneous 140 mg SUBCUT Q14D 07/19/24 07/19/24 pen injector (Bi Antunezick) ezetimibe 10 mg tablet 10 mg PO DAILY 07/19/24 07/19/24 insulin pump cart,auto,BT,G6/7 07/19/24 07/19/24 (Omnipod 5 G6-G7 Pods (Gen 5) subcutaneous cartridge) Previous Rx's ?Medication ?Instructions ?Recorded methylprednisolone 4 mg tablets in See Rx Instructions PO .COMPLEX 07/19/24 a dose pack (Medrol (Yves)) #21 ea Allergies Allergy/AdvReac Type Severity Reaction Status Date / Time meperidine (From Demerol) Allergy ADR-Vomitin Verified 07/19/24 14:13 g Review of Systems Eyes: Denies: change in vision Card: Denies: chest pain or palpitations Resp: Denies: dyspnea Musc: Reports: extremity pain, joint pain and limited range of motion; Denies: neck pain, back pain, extremity swelling, joint swelling, joint redness, joint warmth, joint stiffness, muscle cramps or muscle weakness Neuro: Denies: numbness in extremities or sensory changes PFSH ED PFSH: Medical History Epigastric pain Social History Smoking and tobacco/nicotine status: never used tobacco/nicotine Physical Exam Const: COMMON NORMALS: no acute distress, average body habitus, patient oriented x3, no limitations, healthy appearing, alert and well nourished Neck/C-Spine: COMMON NORMALS: full ROM GENERAL: Yes normal visual inspection CERVICAL SPINE: Yes cervical ROM normal, No pain with cervical ROM and No Cervical spine tenderness Resp: COMMON NORMALS: normal respiratory effort and clear to auscultation bilaterally AUSCULTATION: clear to auscultation bilaterally Cardio: COMMON NORMALS: regular rate and regular rhythm RATE: regular rate RHYTHM: regular rhythm GI: COMMON NORMALS: non-tender Back/Pelvis: COMMON NORMALS: thoracic and lumbar spine normal to inspection Extremity: COMMON NORMALS: capillary refill normal, no joint enlargement and no clubbing, cyanosis or edema GENERAL: Yes normal exam except as noted LEFT UPPER EXTREMITY: Yes shoulder joint, Yes upper arm and Yes elbow joint OTHER: L UE neurovascularly intact; no edema present; no palpable cords; no erythema or evidence for infection; she has pain to L shoulder, upper arm, and L elbow with palpation and mainly with ROM; no muscle/bicep deformity Neuro: COMMON NORMALS: patient oriented x3, moves all extremities, no focal motor deficits and no sensory deficits noted SENSORIUM/ORIENTATION: Yes alert Course Vital Signs: Vital signs: Vital Signs Temperature 98.0 F 07/19/24 14:03 Pulse Rate 64 07/19/24 14:46 Blood Pressure 143/76 07/19/24 14:46 Pulse Oximetry 97 07/19/24 14:46 Oxygen Delivery Me thod Room Air 07/19/24 14:03 MDM - Extremity (Nontraumatic) Medical Decision Making Patient is a very nice 74-year-old female here for left arm pain. She states she did fall about a week ago but did not have any pain following the fall. Her pain started today. She has not had any swelling. No evidence for infection. Limb is neurovascualrly intact. No numbness, tingling, loss of sensation. XRs showing no acute bony injuries. Calcific tendonitis to shoulder. Will have her treat with otc analgesics, heat/ice, and follow-up with primary care in 1 to 2 weeks if symptoms or not improving. Return to ED precautions discussed. Medical Records I reviewed the patient's medical records. Lab Data Radiology Impressions Elbow X-Ray 07/19/24 14:25 IMPRESSION: 1. No evidence of fracture or subluxation. XR interpretation done by ED provider, pending radiology final review Discharge Plan Discharge Patient Disposition: Home Clinical Impression: Arm pain, left Condition: Stable Prescriptions: New methylprednisolone [Medrol (Yves)] 4 mg tablets,dose pack See Rx Instructions .ROUTE .COMPLEX Qty: 21 0RF Rx Instructions: orally per package directions No Action amlodipine 5 mg tablet 5 mg PO BID aspirin 81 mg capsule 81 mg PO DAILY rosuvastatin [Crestor] 40 mg tablet 40 mg PO DAILY insulin lispro [Humalog KwikPen Insulin] 100 unit/mL insulin pen 5 unit SUBCUT TID Rx Instructions: uses low dose scale subQ at meals and HS isosorbide mononitrate 30 mg tablet extended release 24 hr 30 mg PO DAILY metoprolol tartrate 50 mg tablet 50 mg PO BID nitroglycerin 0.4 mg tablet, sublingual 0.4 mg sublingual Q5M PRN (Reason: Chest Pain) Rx Instructions: do not exceed 3 doses per episode diltiazem HCl 180 mg capsule,extended release 24hr 180 mg PO DAILY ezetimibe 10 mg tablet 10 mg PO DAILY Repatha SureClick 140 mg/mL pen injector 140 mg SUBCUT Q14D (DME) Omnipod 5 G6-G7 Pods (Gen 5) Cartridge SUBCUT Discharge Orders: Discharge ED (Routine); Ordered 07/19/24 Ordered By: Shannan Ross Referrals: Jane Cardoso FNP [Primary Care Provider] - Activity Restrictions/Additional Instructions: As we discussed, your x-rays today did not show any evidence of new/acute bony injuries. He did have some degree of calcific tendinitis involving the left shoulder. We discussed conservative therapies such as [id number] Tylenol and Ibuprofen. He may also try ice and heat. Please follow-up with primary care in 1 to 2 weeks for repeat evaluation. You may return to the emergency department anytime for any further concerns you may have. 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
[2024-07-19] MEDS: ondansetron 2 mg/ML SDV 2 mL 4 MG IM (14:42)
[2024-07-19] MEDS: morphine 4 mg/mL SDV 1 mL IM (14:42)
[2024-07-19 14:46] VITALS: BP 143/76; PULSE 64; O2SAT 97
[2024-07-19 16:05] VITALS: BP 152/81; PULSE 68; O2SAT 97
== END 2024-07-19 16:05 | disposition home or self-care (01) ==
PROVIDERS: Emergency Provider Physician Assistant; PCP Nurse Practitioner Family
DX: M79.602 Pain in left arm (principal); Z79.82 Long term (current) use of aspirin; Z79.4 Long term (current) use of insulin
CPT/HCPCS: 73030; 73080; 96372; 99284; J2270; J2405

== ENCOUNTER 2024-08-10 10:44 | Outpatient (CLI) | payer MEDICARE, SELFPAY ==
--- NOTE | 2024-08-10 10:49 | MR_ITS ---
WS: [id number] MRI LEFT SHOULDER HISTORY: PAIN IN L SHOULDER/ANESTHESIA OF SKIN/FALL COMPARISON: 06/04/2011, shoulder radiograph 07/19/2024 TECHNIQUE: Multiplanar sequences of the shoulder joint are submitted. Mild AC joint arthritis. Mild downsloping of the acromion. There is a large enthesopathy along the distal undersurface of the acromion measuring 7 x 3 mm with impingement upon the supraspinatus tendon. No os acromiale. Biceps tendon in good position. Mild narrowing of the glenohumeral joint. Marked thickening and increased T2 signal in the distal supraspinatus tendon consistent with tendinopathy. No tear. No significant atrophy of the rotator cuff muscles or edema. Mild distal subscapularis tendinopathy. Calcific deposit is noted adjacent to the distal subscapularis tendon. Calcific tendinitis was also identified radiographically. No labral tear. No adhesive capsulitis. MR/MR shoulder LT wo con* [id number] IMPRESSION: 1. Mild AC joint arthritis. 2. Large enthesopathy along the distal undersurface of the acromion with impin gement upon the supraspinatus tendon. 3. Marked tendinopathy of the distal supraspinatus with no tear. 4. Mild tendinopathy distal subscapularis tendon. 5. Calcific tendinitis associated with the subscapularis tendon.
== END 2024-08-10 10:45 | disposition home or self-care (01) ==
PROVIDERS: PCP Nurse Practitioner Family; Visit Provider Nurse Practitioner Family
DX: M75.42 Impingement syndrome of left shoulder (principal); R20.0 Anesthesia of skin; W19.XXXA Unspecified fall, initial encounter; M19.012 Primary osteoarthritis, left shoulder; M77.8 Other enthesopathies, not elsewhere classified; M67.814 Other specified disorders of tendon, left shoulder; M75.32 Calcific tendinitis of left shoulder
CPT/HCPCS: 73221